=== PATIENT | female | born 1995 | race Two or more races ===

== ENCOUNTER 2016-08-20 22:50 | Inpatient (IN) | payer MEDICAID ==
[~2016-08-20] VITALS: Ht 167.6 cm; Wt 102.5 kg
[2016-08-20] MEDS ORDERED: LACTATED RINGER'S 1000 ML INJ 1,000 ML IV PRN (23:23)
[2016-08-20] MEDS ORDERED: LACTATED RINGER'S 1000 ML INJ 1,000 ML IV SCH (23:23)
[2016-08-20] MEDS ORDERED: OXYTOCIN 30 UNITS-500ML PREMIX 500 ML IV ONE (23:30)
[2016-08-20] MEDS ORDERED: SODIUM CHLORID 0.9% 500 ML INJ 500 ML IV PRN (23:30)
[2016-08-20] MEDS ORDERED: LIDOCAINE HCL 1% 50 ML VIAL I-DERMAL PRN (23:30)
[2016-08-20] MEDS ORDERED: CITRIC ACID-SODIUM CITRATE LIQ 30 ML UDC PO SCH (23:30)
[2016-08-20] MEDS ORDERED: MINERAL OIL 10 ML VIAL TOPICAL PRN (23:30)
[2016-08-20] MEDS ORDERED: LIDOCAINE HCL 1% 50 ML VIAL INFIL PRN (23:30)
--- NOTE | 2016-08-20 23:35 | HHI.HP ---
History & Physical H&P Patient Name: Carol Ann Ugarte Unit Number: [id number] Date of : 1995 Patient Status: Registered Emergency Room Attending Doctor: Joaquim Hernandez MD HPI HPI Chief Complaint Contractions Date Seen: Aug 20, 2016 Time Seen: 23:20 Travel History International Travel<30 Days: No Contact w/Intl Traveler<30Days: No Known Affected Area: No History of Present Illness HPI 21-year-old 1 at 37-6/7 weeks' gestation with an EDC of September 05 presents with increasing contractions throughout the afternoon. Para: 0 : 1 History (Limited) History Past Medical History Medical History: Denies Significant Hx Obstetric History Obstetric History Primigravida who reports having care in [place]. No records are available. She reports having had a group B strep culture done and was told this was negative. Past Surgical History Narrative Surgical PE tubes Family History Family History: Negative Social History Alcohol Use: No Tobacco Use: No Substance Abuse: No Allergies-Medications Allergies-Medications ROS Review of Systems Except as stated in HPI: all other systems reviewed are Neg Physical Exam Physical Exam Narrative GENERAL: Well-nourished, well-developed patient. SKIN: Warm and dry. HEAD: Normocephalic and atraumatic. EYES: No scleral icterus. No injection or drainage. ENT: No nasal drainage noted. Mucous membranes pink. Airway patent. NECK: Supple, trachea midline. No JVD. CARDIOVASCULAR: Regular rate and rhythm without murmurs, gallops, or rubs. RESPIRATORY: Breath sounds equal bilaterally. No accessory muscle use. ABDOMEN/GI: Abdomen soft, non-tender, bowel sounds present, no rebound, no guarding Gravid to [-] weeks size Fundal Height: [37-] GENITOURINARY: External Genitalia: intact and normal in appearance BUS glands: [Normal-] Cervix: [-] Dilatation: [7 -] Effacement: [-100] Station: [-0] Presentation: [-Vertex] Membranes: [intact or ruptured] Uterine Contractions: [-Every 3-4] FHT's: Category: [-] Baseline: [-] Reactive: [-] Variability: [-] Decels: [-] EXTREMITIES: No cyanosis or edema. BACK: Nontender without obvious deformity. No CVA tenderness. NEUROLOGICAL: Awake and alert. Motor and sensory grossly within normal limits. Five out of 5 muscle strength in all muscle groups. Normal speech. Data Data Data Vital Signs Reviewed: Yes Orders Ob (2e) Additional Admit Info (08/20/16 23:23) MDM MDM Medical Record Reviewed: Yes Narrative Course / MDM Assessment: Primigravida in active labor Plan: Admission for labor management Joaquim Hernandez MD Aug 20, 2016 23:34 Joaquim Hernandez MD Aug 20, 2016 23:35
[2016-08-20] MEDS ORDERED: SODIUM CHLOR 0.9% 1000 ML INJ 1,000 ML IV PRN (23:43)
[2016-08-20 23:51] LABS: AUTOMATED NEUTROPHIL # 13.1 TH/MM3 (1.8-7.7); BASOPHIL % 0.2 % (0.0-2.0); EOSINOPHIL # 0.1 TH/MM3 (0-0.4); EOSINOPHIL % 0.5 % (0.0-4.0); HEMATOCRIT 35.1 % (35.0-46.0); LYMPH % 18.1 % (9.0-44.0); LYMPHOCYTE # 3.1 TH/MM3 (1.0-4.8); MEAN CELL VOLUME 84.7 FL (80.0-100.0); MEAN CORPUSCULAR HEMOGLOBIN 28.1 PG (27.0-34.0); MEAN CORPUSCULAR HGB CONC 33.2 % (32.0-36.0); MONO % 5.2 % (0.0-8.0); PLATELET COUNT 223 TH/MM3 (150-450); RED BLOOD COUNT 4.14 MIL/MM3 (4.00-5.30); RED CELL DISTRIBUTION WIDTH 14.4 % (11.6-17.2); WHITE BLOOD COUNT 17.2 TH/MM3 (4.0-11.0)
[2016-08-21] VITALS (11 sets, daily range): BP systolic 117–135; BP diastolic 69–89; PULSE 80–170; RESP 16–20; TEMP 97.8–98.2
[2016-08-21 00:12] LABS: HEMO FLAGS AUTO DIFF
[2016-08-21 00:36] LABS: BANDS 10 % (0-6); NEUTROPHIL # MANUAL DIFF 13.8 TH/MM3 (1.8-7.7); PLATELET ESTIMATE SMEAR NORMAL (NORMAL); PLATELET MORPHOLOGY NORMAL (NORMAL); POLYS (SEG NEUTROPHILS) 70 % (16-70); WBC DIFF SAMPLE 100
[2016-08-21 00:37] LABS: SCAN/DIFF FINAL DIFF MANUAL
[2016-08-21] MEDS ORDERED: ZOLPIDEM TARTRATE 5 MG TAB PO PRN (00:45)
[2016-08-21] MEDS ORDERED: BENZOCAINE 20% TOPICAL SPRAY 60 ML CAN TOPICAL PRN (00:45)
[2016-08-21] MEDS ORDERED: oxyCODONE/ACETAMINOPHEN 5 MG/325 MG TAB PO PRN (00:45)
[2016-08-21] MEDS ORDERED: SODIUM CHLORIDE 0.9% FLUSH 10 ML FLUSH IV FLUSH PRN (00:45)
[2016-08-21] MEDS ORDERED: ONDANSETRON ODT 4 MG TAB PO PRN (00:45)
[2016-08-21] MEDS ORDERED: DOCUSATE SODIUM 50 MG/SENNA 8.6 MG TAB PO PRN (00:45)
[2016-08-21] MEDS ORDERED: ACETAMINOPHEN 325 MG TAB PO PRN (00:45)
[2016-08-21] MEDS ORDERED: WITCH HAZEL 50%/GLYCERIN 12.5% 40 PAD JAR TOPICAL PRN (00:45)
[2016-08-21] MEDS ORDERED: ALUMINUM/MAGNESIUM/SIMETH 30 ML CUP PO PRN (00:45)
--- NOTE | 2016-08-21 00:49 | PD.OB.DELI ---
Anesthesia: Epidural Episiotomy: None Vaginal Delivery: Normal, Spontaneous Presentation: Occiput anterior Nuchal Cord: None Delayed cord clamping (45 sec): Yes : Female One Minute : 8, 9 Five Minute : 9 Weight: [id number] Placenta: Spontaneous delivery Laceration: 2 deg Repair: Vicryl running (ebl [id number]) Joaquim Hernandez MD Aug 21, 2016 00:49
[2016-08-21] MEDS ORDERED: PREN1TAB45 PO (00:58)
[2016-08-21] MEDS ORDERED: FERR65TA PO (00:59)
[2016-08-21] MEDS ORDERED: SODIUM CHLORIDE 0.9% FLUSH 10 ML FLUSH IV FLUSH SCH (09:00)
--- NOTE | 2016-08-21 12:00 | HHI.OB ---
Subjective Post Day: 1 Remarks 21 year old female s/p at 37/5 wks gestation, PPD 1. AFVSS. Patient reports she is feeling well. Bleeding is decreasing and pain is well- controlled. She is breast feeding and bonding well with baby. Ambulating without difficulties. She is tolerating a diet without nausea or vomiting. She has not had a bowel movement. She has not passed gas. Denies chest pain, shortness of breath, or calf pain. Endorses mild dysuria. ([place] Cao MD R2) Remarks Patient seen and evaluated with resident under direct supervision, agree with assessment and plan. (Joaquim Hernandez MD) Objective Vitals/I&O Vital Signs Date Time Temp Pulse Resp B/P Pulse Ox O2 Delivery O2 Flow Rate FiO2 08/21/16 08:00 90 20 117/72 08/21/16 08:00 98.2 08/21/16 03:30 80 19 119/69 08/21/16 03:30 98.1 08/21/16 01:45 97.8 90 128/88 08/21/16 01:30 90 128/83 08/21/16 01:15 18 08/21/16 01:15 95 126/76 08/21/16 01:00 18 08/21/16 01:00 90 117/72 08/21/16 00:45 98.2 08/21/16 00:45 170 18 131/89 08/21/16 00:30 114 118/80 08/21/16 00:22 18 08/21/16 00:21 93 130/70 Objective Remarks GENERAL: Well-nourished, well-developed patient. CARDIOVASCULAR: Regular rate and rhythm without murmurs, gallops, or rubs. RESPIRATORY: Breath sounds equal bilaterally. No accessory muscle use. ABDOMEN/GI: Abdomen soft, non-tender. Fundus: Firm, non-tender at umbilicus. GENITOURINARY: Light to moderate bleeding. EXTREMITIES: No cyanosis or edema, non-tender, without signs of DVT. Medications and IVs Current Medications Medications (Trade) Dose Ordered Sig/Joe Route Start Time Stop Time Status Last Admin Lactated Ringer's 1,000 ml @ 125 mls/hr Q8H IV 08/20/16 23:23 Lactated Ringer's 1,000 ml @ 3,000 mls/hr Q20M PRN IV 08/20/16 23:23 Sodium Chloride 500 ml @ 1,000 mls/hr ONCE PRN IV 08/20/16 23:30 (NS 1000 ml Inj) 1,000 ml @ 100 mls/hr Q10H PRN IV 08/20/16 23:43 (fentaNYL INJ) 50 mcg Q1H PRN IV PUSH 08/20/16 23:30 (fentaNYL INJ) 100 mcg Q1H PRN IV PUSH 08/20/16 23:30 (Muri-Lube Oil) 10 ml UNSCH PRN TOPICAL 08/20/16 23:30 (NS Flush) 2 ml BID IV FLUSH 08/21/16 09:00 (NS Flush) 2 ml UNSCH PRN IV FLUSH 08/21/16 00:45 (Tylenol) 650 mg Q4H PRN PO 08/21/16 00:45 (Motrin) 600 mg Q6H PRN PO 08/21/16 00:45 (Percocet 5-325 Mg) 2 tab Q4H PRN PO 08/21/16 00:45 (Americaine 20% Top Spr) 1 spray Q4H PRN TOPICAL 08/21/16 00:45 08/21/16 03:33 (Tucks Pads) 1 applic QID PRN TOPICAL 08/21/16 00:45 08/21/16 03:33 (Marely-Colace) 2 tab Q12H PRN PO 08/21/16 00:45 (Ambien) 5 mg HS PRN PO 08/21/16 00:45 (M-M-R Ii Inj) 0.5 ml ONCE ONCE SQ 08/21/16 16:00 08/21/16 16:01 (Boostrix Inj) 0.5 ml ONCE ONCE IM 08/21/16 16:00 08/21/16 16:01 08/21/16 11:07 (Mag-Al Plus Susp Liq) 15 ml Q8H PRN PO 08/21/16 00:45 (Zofran Odt) 4 mg Q6H PRN PO 08/21/16 00:45 ([place] Cao MD R2) Assessment/Plan Assessment and Plan 21 yo female s/p PPD 1. - AFVSS - Continue routine care * Will make sure UA is obtained - Motrin and Percocet PRN pain - Encourage OOB - Pelvic rest x 6 wks. - Contraception: Patient will like to start oral control with her THERMOFORMING OPERATOR. This is already been set up. - Recommend post follow up in 6 wks - Anticipate D/C tomorrow dw Dr. Hernandez ([place] Cao MD R2) [place] Cao MD R2 Aug 21, 2016 12:00 Joaquim Hernandez MD Aug 22, 2016 19:14
[2016-08-21] MEDS: IBUPROFEN 600 MG TAB PO PRN (12:14)
[2016-08-21] MEDS ORDERED: IBUP-232 PO (13:45)
--- NOTE | 2016-08-21 13:45 | HHI.DCPOC ---
Discharge Care Plan Diagnosis: (1) Vaginal delivery Report Symptoms to Your Doctor -Temperate above 100.5 degrees -Redness, of incision or excessive or foul smelling drainage -Unusual pain or calf pain -Increased vaginal bleeding -Painful or difficulty urinating -Feelings of extreme sadness or anxiety after 2 weeks Goals to Promote Your Health * To prevent worsening of your condition and complications * To maintain your health at the optimal level Directions to Meet Your Goals Take your medications as prescribed Follow your dietary instruction Follow activity as directed Ensure plenty of rest for recovery Drink fluids for hydration Keep your appointments as scheduled Take your immunizations and boosters as scheduled If your symptoms worsen call your PCP, if no PCP go to Urgent Care Center or Emergency Room Smoking is Dangerous to Your Health. Avoid second hand smoke Call the 24-hour crisis hotline for domestic abuse at [place] Cao MD R2 Aug 21, 2016 13:45
[2016-08-21] MEDS ORDERED: MEASLES, MUMPS, RUBELLA VACCINE 0.5 ML VIAL SQ ONE (16:00)
[2016-08-21] MEDS ORDERED: DIPHTH/TETANUS/ACEL PERTUSSIS (BOOSTER) 0.5 ML VIAL/PFS IM ONE (16:00)
[2016-08-21 22:16] LABS: BLOOD, URINE MOD (NEG); COMMENT (UR) CULTURE INDICATED; CULTURE IF INDICATED CULTURE INDICATED; GLUCOSE,URINE NEG (NEG); KETONE, URINE NEG (NEG); MUCUS URINE FEW /lpf (OCC); NITRITE,URINE NEG (NEG); PH, URINE 6.5 (5.0-8.5); SQUAMOUS EPITHELIAL CELL URINE 1 /hpf (0-5); URINE COLOR LIGHT-YELLOW (YELLW/STRAW)
--- NOTE | 2016-08-22 07:43 | HHI.OB ---
Subjective Post Day: 2 Remarks day #2. AFVSS overnight. Pain well-controlled. Decreased lochia. Denies dysuria. No breast tenderness. She is feeding the baby via breast. Appetite good. No nausea or vomiting. Endorses flatus. No bowel movement. Ambulating well. Denies calf pain, shortness of breath, or cough. Otherwise, she is doing well this morning and has no other complaints. Objective Vitals/I&O Vital Signs Date Time Temp Pulse Resp B/P Pulse Ox O2 Delivery O2 Flow Rate FiO2 08/21/16 20:30 86 16 135/86 08/21/16 20:30 97.8 08/21/16 08:00 90 20 117/72 08/21/16 08:00 98.2 Objective Remarks GENERAL: Well-nourished, well-developed patient. CARDIOVASCULAR: Regular rate and rhythm without murmurs, gallops, or rubs. RESPIRATORY: Breath sounds equal bilaterally. No accessory muscle use. ABDOMEN/GI: Abdomen soft, non-tender. Fundus: Firm, non-tender at umbilicus. GENITOURINARY: Light to moderate bleeding. EXTREMITIES: No cyanosis or edema, non-tender, without signs of DVT. Medications and IVs Current Medications Medications (Trade) Dose Ordered Sig/Joe Route Start Time Stop Time Status Last Admin Lactated Ringer's 1,000 ml @ 125 mls/hr Q8H IV 08/20/16 23:23 Lactated Ringer's 1,000 ml @ 3,000 mls/hr Q20M PRN IV 08/20/16 23:23 Sodium Chloride 500 ml @ 1,000 mls/hr ONCE PRN IV 08/20/16 23:30 (NS 1000 ml Inj) 1,000 ml @ 100 mls/hr Q10H PRN IV 08/20/16 23:43 (fentaNYL INJ) 50 mcg Q1H PRN IV PUSH 08/20/16 23:30 (fentaNYL INJ) 100 mcg Q1H PRN IV PUSH 08/20/16 23:30 (Muri-Lube Oil) 10 ml UNSCH PRN TOPICAL 08/20/16 23:30 (NS Flush) 2 ml BID IV FLUSH 08/21/16 09:00 (NS Flush) 2 ml UNSCH PRN IV FLUSH 08/21/16 00:45 (Tylenol) 650 mg Q4H PRN PO 08/21/16 00:45 (Motrin) 600 mg Q6H PRN PO 08/21/16 00:45 08/21/16 12:14 (Percocet 5-325 Mg) 2 tab Q4H PRN PO 08/21/16 00:45 (Americaine 20% Top Spr) 1 spray Q4H PRN TOPICAL 08/21/16 00:45 08/21/16 03:33 (Tucks Pads) 1 applic QID PRN TOPICAL 08/21/16 00:45 08/21/16 03:33 (Marely-Colace) 2 tab Q12H PRN PO 08/21/16 00:45 08/21/16 12:14 (Ambien) 5 mg HS PRN PO 08/21/16 00:45 (Mag-Al Plus Susp Liq) 15 ml Q8H PRN PO 08/21/16 00:45 (Zofran Odt) 4 mg Q6H PRN PO 08/21/16 00:45 Assessment/Plan Assessment and Plan 21 yo female s/p PPD 1. - AFVSS - Continue routine care - Motrin and Percocet PRN pain - Encourage OOB - Pelvic rest x 6 wks. - Contraception: Patient will like to start oral control with her JAVASCRIPT WEB DEVELOPER. - Recommend post follow up in 6 wks - Anticipate D/C today dw Wil Machuca MD R1 Aug 22, 2016 07:43
[2016-08-22] MEDS: IBUPROFEN 600 MG TAB PO PRN (10:44)
== END 2016-08-22 13:23 | disposition home or self-care (01) | DRG 775 ==
LOC: HOBED 22:50 → H2EA 23:24 → H1EA 08-21 03:22
PROVIDERS: ADMIT Obstetrics & Gynecology; ATTEND Obstetrics & Gynecology
PROC: 10E0XZZ Delivery of Products of Conception, External Approach (ICD-10-PCS; principal; 2016-08-20)
PROC: 0KQM0ZZ Repair Perineum Muscle, Open Approach (ICD-10-PCS; 2016-08-20)
PROC: 3E0R3CZ (ICD-10-PCS; 2016-08-20)
PROC: 00HU33Z Insertion of Infusion Device into Spinal Canal, Percutaneous Approach (ICD-10-PCS; 2016-08-20)
DX: O70.1 Second degree perineal laceration during delivery (principal); Z37.0 Single live birth; Z3A.37 37 weeks gestation of pregnancy
CPT/HCPCS: 81001; 85007; 85027; 86900; 86901; 87086; 90715; 99285